=== PATIENT | female | born 1985 | race Caucasian/White ===

== ENCOUNTER → 2017-04-30 | Emergency (ER) | payer BC ==
[~2017-04-30] VITALS: Ht 175.3 cm; Wt 108.8 kg
[~2017-04-30] MED LIST: DOMPERIDONE1 GM MC; FLOMAX0.4 MG PO; NORCO 5/3251 TABLET PO; PENTASA500 MG PO; ZOFRAN ODT8 MG PO
[2017-04-30 08:16] LABS: HEMATOCRIT 38.2 % (36.0-46.0); MCH 28.2 PG (29.0-34.0); MCHC 33.8 G/DL (30.0-36.0); MCV 83.6 FL (83-99); MEAN PLAT.VOLUME 9.1 uM^3 (9.5-12.4); PLATELET COUNT 227 K/uL (156-360); RBC DIS.WIDTH-CV 11.9 % (11.8-14.6); RBC DIS.WIDTH-SD 36.1 % (39-53); RED BLOOD COUNT 4.57 M/uL (3.80-5.20); WHITE BLOOD COUNT 6.9 K/uL (4.1-10.2)
[2017-04-30 08:27] LABS: CHLORIDE 107 mEq/L (99-109); POTASSIUM 3.2 mEq/L (3.7-5.4); SODIUM 138 mEq/L (136-147)
[2017-04-30 08:29] LABS: GLUCOSE 110 mg/dL (70-99)
[2017-04-30 08:30] LABS: ANION GAP 12 MEQ/L (2-14)
[2017-04-30 08:30] LABS: ADD MIUA? NO; BILIRUBIN NEGATIVE; BLOOD NEGATIVE; COLOR YELLOW ((YELLOW)); GLUCOSE (STRIP) NEGATIVE; KETONES NEGATIVE; LEUKOCYTES NEGATIVE; NITRITE NEGATIVE; PROTEIN (STRIP) NEGATIVE; SPECIFIC GRAVITY 1.017 (1.000-1.030); UROBILINOGEN 0.2 MG/DL (0.2-1.0)
[2017-04-30 08:31] LABS: TOTAL BILIRUBIN 0.4 mg/dL (0.0-1.0)
[2017-04-30 08:33] LABS: ALKALINE PHOSPHATASE 60 IU/L (3-129); GFR ESTIMATE (CALCULATED) > 59 mL/min/
[2017-04-30 08:34] LABS: UREA NITROGEN (BUN) 15 mg/dL (9-23)
[2017-04-30 08:36] LABS: LIPASE 19 U/L (1.0-51.0)
[2017-04-30 08:42] LABS: QUANTITATIVE HCG < 4.0 MIU/ML
[2017-04-30 10:20] VITALS: BP 130/70
== END | disposition home or self-care (01) ==
LOC: EME 07:27
PROVIDERS: Physician Assistant
DX: N20.0 Calculus of kidney (principal); Z88.2 Allergy status to sulfonamides; Z88.1 Allergy status to other antibiotic agents
CPT/HCPCS: 74177; 80053; 81003; 83690; 84702; 85027; 99281; 99284; J1885; J2405; J7030